=== PATIENT | male | born 1995 | race African-American/Black ===

== ENCOUNTER 2017-05-19 17:47 | Emergency (ER) | payer BC, OTHER ==
[~2017-05-19] VITALS: Ht 170.2 cm; Wt 74.2 kg
[2017-05-19 17:53] VITALS: TEMP 36.6; Ht 170.2 cm; Wt 74.2 kg
[2017-05-19] MEDS ORDERED: RANITIDINE HCL 50 MG/100 ML D5W IV STA (17:53)
[2017-05-19] MEDS ORDERED: SODIUM CHLORIDE 0.9% 1000ML 1,000 ML IV STA (17:53)
[2017-05-19 18:00] VITALS: O2SAT 95
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
[2017-05-19 18:32] LABS: BUN/CREATININE RATIO 12.9 (10-20); CALCIUM 8.7 mg/dl (8.5-10.1); CREATININE 1.2 mg/dl (0.60-1.40); POTASSIUM 2.9 mmol/L (3.5-5.1)
[2017-05-19] MEDS ORDERED: RANI150T3 PO (19:13)
[2017-05-19] MEDS ORDERED: EPP3/2 IM (19:13)
[2017-05-19] MEDS ORDERED: PRED20TA2 PO (19:13)
[2017-05-20 01:23] VITALS: BP 127/83; PULSE 77; O2SAT 98
== END 2017-05-20 01:24 | disposition home or self-care (01) ==
LOC: EDBD 17:47 → C.EDB 17:48
DX: T51.91XA Toxic effect of unspecified alcohol, accidental (unintentional), initial encounter (principal)